=== PATIENT | male | born 1965 | race Caucasian/White ===

== ENCOUNTER 2023-10-15 15:02 | Inpatient (IN) | payer SELFPAY ==
[2023-10-15] MEDS ORDERED: Ondansetron PF 4 MG/2 ML Vial IVP PRN (18:00)
[2023-10-15] MEDS ORDERED: Acetaminophen 325 MG TAB PO PRN (18:00)
[2023-10-15] MEDS ORDERED: Ondansetron ODT 4 MG TAB PO PRN (18:00)
[2023-10-15] MEDS ORDERED: Nitroglycerin 2% Ointment 1 INCH/1 GM Packet TOP PRN (18:00)
[2023-10-15 18:08] VITALS: BMI 20.4
[2023-10-15 19:37] LABS: Troponin I Less than 0.010 ng/mL (< 0.028)
[2023-10-15 23:01] LABS: Troponin I Less than 0.010 ng/mL (< 0.028)
[2023-10-16 05:10] LABS: %Basophils 1.2 % (0.0-1.0); %Eosinophils 8.7 % (0.0-10.0); %Lymphocytes 29.6 % (21.0-51.0); %Monocytes 6.4 % (0.0-10.0); %Neutrophils 53.7 % (42.0-75.0); Hematocrit 41.1 % (42.0-52.0); Hemoglobin 13.6 g/dL (14.0-18.0); Mean Corpuscular HGB CONC 33.1 g/dL (32.0-36.0); Mean Corpuscular Hemoglobin 27.6 pg (27.0-31.0); Mean Corpuscular Volume 83.4 fL (78.0-98.0); Platelet Count 196 10x3/uL (130-400); RBC Distribution Width 13.4 % (11.5-14.5); Red Blood Cell (RBC) Count 4.93 mill/uL (4.70-6.10)
[2023-10-16 05:50] LABS: Anion Gap 11 mmol/L (10-20); BUN (Urea Nitrogen) 13 mg/dL (8.4-25.7); Calc. Creatinine Clearance 81 mL/min (70-130); Calcium 8.4 mg/dL (7.8-10.44); Carbon Dioxide 23 mmol/L (22-29); Cardiac Risk 5.3 (Less than 4.5); Chloride 108 mmol/L (98-107); Cholesterol 148 mg/dl (< 200 Desired); Estimated GFR 88; Glucose 83 mg/dL (70-105); HDL Cholesterol 28 mg/dL (>60 Neg Risk); LDL Cholesterol, Calculated 105 mg/dL; Potassium 3.8 mmol/L (3.5-5.1); Sodium 138 mmol/L (136-145); Triglycerides 75 mg/dL (Less than 150)
[2023-10-16] MEDS: Aspirin Chewable 81 MG TAB PO SCH (07:55)
[2023-10-16] MEDS ORDERED: ADENOSINE 60 MG/20 ML SDV ONE (11:01)
[2023-10-17 04:01] LABS: #Basophils 0.06 10x3/uL (0.0-0.2); %Basophils 0.7 % (0.0-1.0); %Eosinophils 8.5 % (0.0-10.0); %Lymphocytes 27.6 % (21.0-51.0); %Monocytes 6.6 % (0.0-10.0); %Neutrophils 56.5 % (42.0-75.0); Hematocrit 42.2 % (42.0-52.0); Hemoglobin 13.8 g/dL (14.0-18.0); Mean Corpuscular HGB CONC 32.7 g/dL (32.0-36.0); Mean Corpuscular Hemoglobin 27.3 pg (27.0-31.0); Mean Corpuscular Volume 83.6 fL (78.0-98.0); Platelet Count 187 10x3/uL (130-400); RBC Distribution Width 13.2 % (11.5-14.5); Red Blood Cell (RBC) Count 5.05 mill/uL (4.70-6.10)
[2023-10-17 04:25] LABS: Anion Gap 11 mmol/L (10-20); BUN (Urea Nitrogen) 16 mg/dL (8.4-25.7); Calc. Creatinine Clearance 65 mL/min (70-130); Calcium 8.7 mg/dL (7.8-10.44); Carbon Dioxide 24 mmol/L (22-29); Chloride 107 mmol/L (98-107); Estimated GFR 67; Glucose 89 mg/dL (70-105); Potassium 3.7 mmol/L (3.5-5.1); Sodium 138 mmol/L (136-145)
[2023-10-17] MEDS ORDERED: Communication Order-Pharmacy FS SCH (11:15)
[2023-10-18 03:54] LABS: #Basophils 0.08 10x3/uL (0.0-0.2); %Eosinophils 9.3 % (0.0-10.0); %Neutrophils 49.5 % (42.0-75.0); Hemoglobin 14.5 g/dL (14.0-18.0); Mean Corpuscular Hemoglobin 26.8 pg (27.0-31.0); Mean Corpuscular Volume 81.3 fL (78.0-98.0); Mean Platelet Volume 11.2 fL (7.4-10.4); Platelet Count 207 10x3/uL (130-400); RBC Distribution Width 13.2 % (11.5-14.5); Red Blood Cell (RBC) Count 5.41 mill/uL (4.70-6.10)
[2023-10-18 04:34] LABS: Anion Gap 15 mmol/L (10-20); BUN (Urea Nitrogen) 16 mg/dL (8.4-25.7); Calc. Creatinine Clearance 65 mL/min (70-130); Calcium 8.8 mg/dL (7.8-10.44); Carbon Dioxide 24 mmol/L (22-29); Chloride 103 mmol/L (98-107); Estimated GFR 67; Glucose 85 mg/dL (70-105); Potassium 3.8 mmol/L (3.5-5.1); Sodium 138 mmol/L (136-145)
[2023-10-18] MEDS: Sodium Chloride 0.9% 1,000 ML IV SCH (06:12)
[2023-10-18] MEDS ORDERED: Heparin 10,000 UNITS/ 10 ML VIAL ONE (06:18)
[2023-10-18] MEDS ORDERED: fentaNYL 50 mcg/mL 1 mL Vial ONE (06:58)
[2023-10-18] MEDS ORDERED: Midazolam HCl 2 mg/2 ml Vial ONE (06:58)
[2023-10-18] MEDS ORDERED: Nitroglycerin 50 MG/250 ML BOT 250 ML ONE (07:21)
[2023-10-18] MEDS ORDERED: Sodium Chloride 0.9% 200 ML IV PRN (08:05)
[2023-10-18] MEDS ORDERED: Nitroglycerin 0.4 MG TAB (25 Tab Bottle) SL PRN (08:05)
[2023-10-18] MEDS: Rosuvastatin 20 MG TAB PO SCH (20:11)
[2023-10-19 07:35] LABS: #Basophils 0.05 10x3/uL (0.0-0.2); %Basophils 0.7 % (0.0-1.0); %Eosinophils 9.4 % (0.0-10.0); %Lymphocytes 35.2 % (21.0-51.0); %Monocytes 7.1 % (0.0-10.0); %Neutrophils 47.5 % (42.0-75.0); Hematocrit 47.1 % (42.0-52.0); Hemoglobin 15.1 g/dL (14.0-18.0); Mean Corpuscular HGB CONC 32.1 g/dL (32.0-36.0); Mean Corpuscular Hemoglobin 26.3 pg (27.0-31.0); Mean Corpuscular Volume 81.9 fL (78.0-98.0); Mean Platelet Volume 10.5 fL (7.4-10.4); Platelet Count 209 10x3/uL (130-400); RBC Distribution Width 13.2 % (11.5-14.5); Red Blood Cell (RBC) Count 5.75 mill/uL (4.70-6.10)
[2023-10-19] MEDS: Amlodipine 5 MG TAB PO SCH (07:44)
[2023-10-19 08:00] LABS: Anion Gap 12 mmol/L (10-20); BUN (Urea Nitrogen) 11 mg/dL (8.4-25.7); Calc. Creatinine Clearance 70 mL/min (70-130); Calcium 9.3 mg/dL (7.8-10.44); Carbon Dioxide 27 mmol/L (22-29); Chloride 106 mmol/L (98-107); Estimated GFR 75; Glucose 87 mg/dL (70-105); Potassium 4.1 mmol/L (3.5-5.1); Sodium 141 mmol/L (136-145)
[2023-10-19 08:23] VITALS: BP 153/77; TEMP 97.2
== END 2023-10-19 10:16 | disposition home or self-care (01) | DRG 287 ==
LOC: 2SW 16:50 → OBSVTOIN 10-18 07:41
PROVIDERS: ADMIT Family Medicine; ATTEND Hospitalist
PROC: 4A023N7 Measurement of Cardiac Sampling and Pressure, Left Heart, Percutaneous Approach (ICD-10-PCS; principal; 2023-10-18)
PROC: B2111ZZ Fluoroscopy of Multiple Coronary Arteries using Low Osmolar Contrast (ICD-10-PCS; 2023-10-18)
PROC: B2151ZZ Fluoroscopy of Left Heart using Low Osmolar Contrast (ICD-10-PCS; 2023-10-18)
DX: I20.89 Other forms of angina pectoris (principal); I49.3 Ventricular premature depolarization; R00.8 Other abnormalities of heart beat; Z79.82 Long term (current) use of aspirin; Z79.899 Other long term (current) drug therapy; Z88.0 Allergy status to penicillin
CPT/HCPCS: 36415; 78452; 80048; 80061; 85025; 93017; 93306; 93458; 94760; 99152; 99153; A9502; C1769; C1887; C1894; J0153; J1644; J2250; J3010; J7050